=== PATIENT | female | born 1980 | race Caucasian/White ===

== ENCOUNTER 2016-07-05 13:07 | Emergency (ER) | payer MEDICAID ==
[~2016-07-05] VITALS: Wt 81.0 kg
[~2016-07-05 13:07] MED LIST: ACET500C5 PO; AMO500 PO; CEPH-443 PO; IBUP-1542 PO
[2016-07-05] MEDS ORDERED: ACETAMINOPHEN 500 MG TAB PO STA (14:05)
--- NOTE | 2016-07-05 14:06 | ERD ---
ER Documentation Chief Complaint Date/Time DATE: 07/05/16 TIME: 13:55 Chief Complaint FEVER X 2 DAYS HPI 35-year-old female presents to the emergency room for productive cough, shortness of breath, chest pain, back pain, fever for 3 days.Stated that her chest pain and back pain is worse whenever she coughs and on movement. Exposed to son who has a fever. Took ibuprofen 200 mg tablet 1 at around 10 AM today. Denies headache, loss of consciousness, dizziness, blurry vision, changes in vision, photophobia, facial pain, ear pain, throat pain, difficulty swallowing, neck pain, shoulder pain, hemoptysis, abdominal pain, loss of appetite, nausea, vomiting, hematochezia, diarrhea, constipation, urinary symptoms, , the possibility of being , bladder and bowel incontinences, extremity weakness, extremity tenderness, numbness or tingling sensation, difficulty walking, recent travel, recent exposure to illness, recent antibiotic use in the last 3 months, fever, chills. Allergy: No known drug allergies. PMH: "Thyroid." Family medical history: Father has hypertension, grandmother had a heart attack at age of 7272 years old, 2 of his uncles had heart attack after the age of 50. AO LMP: 06/07/2016 Medications: Ibuprofen. Surgery: Denies. Primary Social History: Not working at this time. Denies smoking, use of alcohol, use of illegal drugs. Secondhand smoking exposure to . ROS All systems reviewed and are negative except as per history of present illness. Medications Home Meds Active Scripts Acetaminophen* (Tylophen*) 500 Mg Capsule, 1 CAP PO Q4 Y for PAIN AND OR ELEVATED TEMP, #30 CAP Prov:BUDDY BRAR PA-C 04/23/15 Amoxicillin* (Amoxicillin*) 500 Mg Cap, 500 MG PO BID for 10 Days, CAP Prov:BUDDY BRAR PA-C 04/23/15 Cephalexin* (Keflex*) 500 Mg Capsule, 500 MG PO QID for 7 Days, CAP Prov:SIENNA OLEARY. 10/29/14 Ibuprofen* (Motrin*) 600 Mg Tab, 600 MG PO Q6H Y for PAIN AND OR ELEVATED TEMP, #30 Prov:SIENNA OLEARY. 10/29/14 Allergies Allergies: Coded Allergies: No Known Allergies (Verified Allergy, Mild, 10/31/14) PMhx/Soc History of Surgery: No Anesthesia Reaction: No Hx Neurological Disorder: No Hx Respiratory Disorders: No Hx Cardiac Disorders: No Hx Psychiatric Problems: No Hx Miscellaneous Medical Probl: Yes (hypothyroidism) Hx Alcohol Use: No Hx Substance Use: No Hx Tobacco Use: No Physical Exam Vitals Vital Signs Date Time Temp Pulse Resp B/P Pulse Ox O2 Delivery O2 Flow Rate FiO2 07/05/16 13:12 101.8 122 18 175/98 99 Physical Exam CONSTITUTIONAL: Well-appearing; well-nourished; in no apparent distress. HEAD: Normocephalic; atraumatic. EYES: Conjunctiva clear, sclera non-icteric, EOM intact. PERRL Ears: Hearing intact. EACs clear, TMs non-bulging, non-inflamed, translucent & mobile, ossicles normal appearance, No obstructions, no erythema, no discharges Nose: No obstructions. No polyps. No external lesions. Mucosa non-inflamed. No external lesions, septum and turbinates normal. No rhinorrhea. No discharges. Frontal sinus is non-tender to palpation. Maxillary sinus is non-tender to palpation. MOUTH: Moist mucous membranes, no lesion, no obstructions, no vesicles, no thrush, patent airway Throat: Uvula in midline. Right tonsil is +1 with no erythema, no exudate. Left tonsil is +1 with no erythema, no exudate. Tolerating secretions well. Good gag reflex. Patent airway. Neck: Supple, without lesions, bruits, or adenopathy. No mass. Thyroid non- enlarged and non-tender to palpation. CHEST: Symmetrical chest. Respirations even and not labored. No retractions noted. Mid sternal chest pain on range of motion and during inspiration. CARDIOVASCULAR: Normal S1, S2. RRR. No murmurs, gallops. RESPIRATORY: Normal chest excursion with respiration; breath sounds clear and equal bilaterally; no wheezes, rhonchi, or rales. Breathing even and unlabored. Speaking in clear, full, and complete sentences w/ ease. ABDOMEN: Normal bowel sounds normal. Soft, round, non-distended, non-guarding, no tenderness, no rebound, no organomegaly, no masses, no pulsating abdominal mass. No hernia. No peritoneal signs. : No CVA tenderness. BACK: Symmetrical shoulder. Spine is midline without deformity, tenderness. No evidence of trauma or deformity. Upper back pain during spinal range of motion. PELVIS: Stable pelvis. No evidence of trauma or deformity. MUSCULOSKELETAL: Normal gait and station. No misalignment, asymmetry, crepitation, defects, tenderness, masses, effusions, decreased range of motion, instability, atrophy or abnormal strength or tone in the head, neck, spine, ribs , pelvis or extremities. Has mild supraspinatus tenderness left upper and right upper. No calf tenderness. NEUROVASCULAR: Distal pulses are present. Pedal pulse are present, equal, and normal. Capillary refills are < 2 seconds. NEUROLOGIC: Alert and oriented x4. Speaks full and clear sentences. Cranial Nerves II-XII normal. Sensation to pain, touch, and proprioception normal. Grossly unremarkable. No neurologic deficits. Romberg test is negative. PSYCHOLOGICAL: The patients mood and manner are appropriate. No hallucinations , delusions. Not SI. Not HI. Has the capacity to decide for self SKIN: Normal for age and ethnicity; warm; dry; good turgor; no apparent lesions or exudates. No rashes, hives, discoloration. Intact. Results 24 hrs Current Medications Medications (Trade) Dose Ordered Sig/Shree Route PRN Reason Start Time Stop Time Status Last Admin Dose Admin Acetaminophen (Tylenol Tab) 1,000 mg ONCE STAT PO 07/05/16 14:05 07/05/16 14:08 DC 07/05/16 14:12 Procedures/MDM Examination: Please see physical examination. Disease process, medical treatment was explained to the patient and family member. They verbalized understanding and agreed with the diagnostic tests, medical treatment, and follow-up care. EKG: Sinus tachycardia with ventricular rate of 106 bpm. No evidence of acute myocardial infarction. Radiology: Chest x-ray revealed no active intrathoracic disease. Treatment: Tylenol. Re-evaluation: Denies headache, dizziness, blurry vision, neck pain, chest pain , back pain, abdominal pain. Patient is alert and oriented 4. Tolerating secretions. No difficulty swallowing. Patent airway. Speaks full and clear sentences. No nausea and vomiting. No neurological deficits. Consultation: None. Differential diagnosis: Acute myocardial infarction versus chest wall pain versus pneumonia versus bronchitis versus URI Medical decision makin-year-old female presents to the emergency room for productive cough, shortness of breath, chest pain, back pain, fever for 3 days.Stated that her chest pain and back pain is worse whenever she coughs and on movement. Exposed to son who has a fever. Took ibuprofen 200 mg tablet 1 at around 10 AM today. Patient's complaint, patient's history, patient's presentation, my physical findings, diagnostic test results, my re-evaluation are consistent with my final diagnosis of upper respiratory infection viral in origin. Medications prescribed are the following: [id number] Tylenol and/or Motrin supportive treatment for fever and/or pain. Nafcillin. Promethazine DM. Patient and family member are made aware of the side effects and adverse reactions of the medications prescribed. Instructed on when to seek emergent and medical attention in case allergic/anaphylactic reactions or severe side effects and or adverse reactions to medications. Patient and family member verbalized understanding. Patient instructed Instructed to follow-up with his PCP in 24-48 hours. Patient stated that she will follow-up with her PCP in the next 24-48 hours. Instructed to Call 911 for chest pain, shortness of breath. Advised to come back here in ED as soon as possible for severity of symptoms which includes but not limited to: any new symptoms; shortness of breath/difficulty of breathing; cardiovascular changes; severe gastrointestinal symptoms; signs and symptoms of bleeding and or infection; signs of compartment syndrome/neurovascular changes; neurological changes/deficits. Patient and family member verbalized understanding. Upon discharge, patient is alert and oriented x 4, speaks full and clear sentences, denies pain, has no neurological deficits, has no neurovascular deficits, difficulty of breathing. Breathing even and unlabored. Lung sounds are clear to auscultation. Not in distress. Appears comfortable. Ambulatory with steady gait. Appears satisfied with care provided here in ED. Departure Diagnosis: Primary Impression: Cough Additional Impression: URI (upper respiratory infection) Condition: Good Additional Instructions: Instructed to follow-up with his PCP in 24-48 hours. Patient stated that she will follow-up with her PCP in the next 24-48 hours. Instructed to Call 911 for chest pain, shortness of breath. Advised to come back here in ED as soon as possible for severity of symptoms which includes but not limited to: any new symptoms; shortness of breath/difficulty of breathing; cardiovascular changes; severe gastrointestinal symptoms; signs and symptoms of bleeding and or infection; signs of compartment syndrome/neurovascular changes; neurological changes/deficits. Patient and family member verbalized understanding. JORDYN NOLASCO Jul 05, 2016 14:05
--- NOTE | 2016-07-05 15:54 | RADRPT ---
PROCEDURE: XR Chest. CLINICAL INDICATION: Cough/chest pain TECHNIQUE: Chest PA (chest PA mislabeled right and left). COMPARISON: No comparison available. FINDINGS: The mediastinal structures are unremarkable. The heart is normal in size and configuration. The pu lmonary vascularity is normal. The lung singh are unremarkable. No consolidation is identified. The pleural spaces are unremarkable. The axial skeleton is unremarkable. IMPRESSION: No active intrathoracic disease. RPTAT: HGDB .Arnoldo Fitzgerald MD, MD Date Time Electronically viewed and signed by .Arnoldo Fitzgerald MD, on 07/05/2016 15:54 .B/
[2016-07-05] MEDS ORDERED: BENZ100C70 PO (16:04)
[2016-07-05] MEDS ORDERED: D-ME473S18 PO (16:05)
[2016-07-05 16:21] VITALS: BP 126/85; PULSE 85; RESP 18; TEMP 100
== END 2016-07-05 16:29 | disposition home or self-care (01) ==
LOC: FTE 13:07
DX: R05 Cough (principal); J06.9 Acute upper respiratory infection, unspecified; E03.9 Hypothyroidism, unspecified
CPT/HCPCS: 71010; 93005; Z7502; Z7610

== ENCOUNTER 2016-08-10 14:27 | Emergency (ER) | payer MEDICAID ==
[~2016-08-10] VITALS: Ht 162.6 cm; Wt 75.0 kg
[~2016-08-10 14:27] MED LIST changes: +BENZ100C70 PO; +D-ME473S18 PO; +LEVO25TA59; +PREN1TAB49
[2016-08-10 14:44] VITALS: Ht 162.6 cm; Wt 75.0 kg
[2016-08-10] MEDS ORDERED: LORAZEPAM 1 MG TAB PO ONE (15:00)
[2016-08-10] MEDS ORDERED: IBUP200C PO ×2 (15:16→15:17)
[2016-08-10] MEDS ORDERED: IBUP100T46 PO (15:16)
[2016-08-10] MEDS ORDERED: ACETAMINOPHEN 500 MG TAB PO STA (16:24)
[2016-08-10] MEDS ORDERED: ALPR0.5T PO (16:45)
--- NOTE | 2016-08-10 16:49 | ERD ---
ER Documentation Chief Complaint Date/Time DATE: 08/10/16 TIME: 16:45 Chief Complaint PT BIB for c/o facial numbness, sob and anxiety X 1 hour. HPI This 35-year-old female complains of onset a few hours after giving plasma with symptoms of hyperventilation since of impending doom, tremors, numbness to her entire body, carpal spasms. She had no chest pain no palpitations no syncope no headache no focal neurological complaints When the patient was brought in she was having active carpal spasms with hyperventilation. The patient states she is under a lot of stress currently ROS All systems reviewed and are negative except as per history of present illness. Medications Home Meds Active Scripts Alprazolam* (Xanax*) 0.5 Mg Tab, 0.5 MG PO TID, #14 TAB Prov:TORRES EWING DO 08/10/16 Acetaminophen* (Tylophen*) 500 Mg Capsule, 1 CAP PO Q4 Y for PAIN AND OR ELEVATED TEMP, #30 CAP Prov:BUDDY BRARC 04/23/15 Reported Medications Ibuprofen* (Ibuprofen*) 200 Mg Capsule, 200 MG PO QID Y for PAIN, CAP 08/10/16 Discontinued Reported Medications Ibuprofen* (Ibuprofen*) 200 Mg Capsule, 200 MG PO QID Y for PAIN, CAP 08/10/16 Ibuprofen* (Ibuprofen*) 100 Mg Tab.chew, 200 MG PO Q6 Y for PAIN, TAB.CHEW 08/10/16 Discontinued Scripts Dextromethorphan Hb-Promethazine Hcl (Promethazine DM Syrup) 473 Ml Syrup, 5 ML PO Q6H Y for COUGH, #4 OZ Prov:JOSE ELIASILAROWAN HERRERAAR F 07/05/16 Benzonatate* (Tessalon Perle*) 100 Mg Capsule, 100 MG PO Q8H Y for COUGH for 7 Days, CAP Prov:PASILAROWAN HERRERAAR F 07/05/16 Amoxicillin* (Amoxicillin*) 500 Mg Cap, 500 MG PO BID for 10 Days, CAP Prov:BUDDY BRAR PA-C 04/23/15 Cephalexin* (Keflex*) 500 Mg Capsule, 500 MG PO QID for 7 Days, CAP Prov:SIENNA OLEARY 10/29/14 Ibuprofen* (Motrin*) 600 Mg Tab, 600 MG PO Q6H Y for PAIN AND OR ELEVATED TEMP, #30 Prov:SIENNA OLEARY 10/29/14 Allergies Allergies: Coded Allergies: No Known Allergies (Verified Allergy, Mild, 08/10/16) PMhx/Soc History of Surgery: No Anesthesia Reaction: No Hx Neurological Disorder: No Hx Respiratory Disorders: No Hx Cardiac Disorders: No Hx Psychiatric Problems: No Hx Miscellaneous Medical Probl: Yes (hypothyroidism) Hx Alcohol Use: No Hx Substance Use: No Hx Tobacco Use: No Smoking Status: Never smoker FmHx Family History: No coronary disease Physical Exam Vitals Vital Signs Date Time Temp Pulse Resp B/P Pulse Ox O2 Delivery O2 Flow Rate FiO2 08/10/16 14:44 97.9 98 20 122/78 100 Physical Exam Const: Well-developed, well-nourished Head: Atraumatic, normocephalic Eyes: Normal Conjunctiva, PERRLA, EOMI, normal sclera, no nystagmus ENT: Normal External Ears, Nose and Mouth, moist mucus membranes. Neck: Full range of motion. No meningismus, no lymphadenopathy. Resp: Clear to auscultation bilaterally, no wheezing, rhonchi, rales Cardio: Tachycardia, no murmurs, S1 S2 present] Abd: Soft, non tender x 4, non distended. Normal bowel sounds, no guarding or rebound, no pulsitile abdominal masses or bruits Skin: No petechiae or rashes, no ecchymosis , no maculopapular rash Back: No midline or flank tenderness Ext: No cyanosis, or edema, FROM x 4, normal inspection, neurovascularly intact x 4 Neur: Awake and alert, STR 5/5 x 4, sensation intact x 4, no focal findings, cerebellum intact Psych: Active panic attack, anxiety with carpal spasm] Results 24 hrs Current Medications Medications (Trade) Dose Ordered Sig/Shree Route PRN Reason Start Time Stop Time Status Last Admin Dose Admin Lorazepam (Ativan) 1 mg ONCE ONCE PO 08/10/16 15:00 08/10/16 15:01 DC 08/10/16 14:56 Acetaminophen (Tylenol Tab) 1,000 mg ONCE STAT PO 08/10/16 16:24 08/10/16 16:25 DC 08/10/16 16:29 Procedures/MDM EKG: Rate/Rhythm: Normal Sinus Rhythm,NL intervals QRS, ST, QT: NORMAL CO, QRS, QT] Impression: NORMAL EKG Patient is now calm. The patient had an active anxiety attack. The patient says she has a lot of stressors in life currently. The patient has no focal neurological complaints no exam consistent with stroke or other pathology. Departure Diagnosis: Primary Impression: Anxiety attack Condition: Stable Patient Instructions: Anxiety Reaction Referrals: NO PRIMARY,CARE PHYSICIAN (PCP) TRORES EWING DO Aug 10, 2016 16:49
[2016-08-10 16:54] VITALS: BP 118/76; PULSE 92; RESP 18; TEMP 98.1
== END 2016-08-10 16:56 | disposition home or self-care (01) ==
LOC: E/R 14:27
DX: F41.1 Generalized anxiety disorder (principal); E03.9 Hypothyroidism, unspecified; R40.2142 Coma scale, eyes open, spontaneous, at arrival to emergency department; R40.2252 Coma scale, best verbal response, oriented, at arrival to emergency department; R40.2362 Coma scale, best motor response, obeys commands, at arrival to emergency department; R06.02 Shortness of breath
CPT/HCPCS: 93005; Z7502; Z7610

== ENCOUNTER 2016-08-26 08:22 | Emergency (ER) | payer MEDICAID ==
[~2016-08-26] VITALS: Ht 157.5 cm; Wt 78.9 kg
[~2016-08-26 08:22] MED LIST changes: +ALPR0.5T PO; -AMO500 PO; -BENZ100C70 PO; -CEPH-443 PO; -D-ME473S18 PO; -IBUP-1542 PO; +IBUP200C PO; -LEVO25TA59; -PREN1TAB49
[2016-08-26 08:26] VITALS: Ht 157.5 cm; Wt 78.9 kg
[2016-08-26] MEDS ORDERED: KETOROLAC 60 MG INJ IM STA (08:55)
--- NOTE | 2016-08-26 10:41 | RADRPT ---
PROCEDURE: XR Shoulder. CLINICAL INDICATION: Injury TECHNIQUE: Three views of the right shoulder are available for review. COMPARISON: None available FINDINGS: The humeral head is located. The AC joint is maintained. There is no acute osseous or articular abn ormality. No evidence for fracture. The visualized portions of the right lung are clear . IMPRESSION: 1. No acute osseous abnormality. RPTAT: PP .Soto Martino MD, MD Date Time Electronically viewed and signed by .Soto Martino MD, on 08/26/2016 10:41 .d/
[2016-08-26] MEDS ORDERED: IBUP-1542 PO (11:15)
[2016-08-26] MEDS ORDERED: CYCL-319 PO (11:15)
--- NOTE | 2016-08-26 11:21 | ERD ---
ER Documentation Chief Complaint Date/Time DATE: 08/26/16 TIME: 11:18 Chief Complaint right shoulder pain after heavy lifting HPI 35-year-old female patient with no significant past medical history presents to the ED complaining of right shoulder pain after pulling a heavy shelf at home yesterday. States that she is unsure how heavy was the dresser. Patient is unable to describe her pain. Rates the pain a 9 out of 10. States that she has been taking ibuprofen with slight relief of her symptoms. Denies any chest pain, shortness of breath, fever, chills, neck pain, neck stiffness, loss of sensation, loss of range of motion. Denies any other injuries. ROS All systems reviewed and are negative except as per history of present illness. Medications Home Meds Active Scripts Cyclobenzaprine Hcl* (Cyclobenzaprine Hcl*) 10 Mg Tablet, 10 MG PO TID, #15 TAB Prov:NATHANIEL FIORE PA-C 08/26/16 Ibuprofen* (Motrin*) 600 Mg Tab, 600 MG PO Q6, #30 TAB Prov:NATHANIEL FIORE PA-C 08/26/16 Alprazolam* (Xanax*) 0.5 Mg Tab, 0.5 MG PO TID, #14 TAB Prov:TORRES EWING DO 08/10/16 Acetaminophen* (Tylophen*) 500 Mg Capsule, 1 CAP PO Q4 Y for PAIN AND OR ELEVATED TEMP, #30 CAP Prov:BUDDY BRAR PA-C 04/23/15 Reported Medications Ibuprofen* (Ibuprofen*) 200 Mg Capsule, 200 MG PO QID Y for PAIN, CAP 08/10/16 Allergies Allergies: Coded Allergies: No Known Allergies (Verified Allergy, Mild, 08/10/16) PMhx/Soc Medical and Surgical Hx: pt denies Surgical Hx History of Surgery: No Anesthesia Reaction: No Hx Neurological Disorder: No Hx Respiratory Disorders: No Hx Cardiac Disorders: No Hx Psychiatric Problems: No Hx Miscellaneous Medical Probl: Yes (hypothyroidism) Hx Alcohol Use: No Hx Substance Use: No Hx Tobacco Use: No Smoking Status: Never smoker Physical Exam Vitals Vital Signs Date Time Temp Pulse Resp B/P Pulse Ox O2 Delivery O2 Flow Rate FiO2 08/26/16 11:37 76 18 132/88 99 Room Air 08/26/16 08:26 98.1 76 18 138/90 99 Physical Exam Const: Lnq-yfs-yqehfluia, well-nourished. In no acute distress. Head: Atraumatic, normocephalic Eyes: Normal Conjunctiva without injection ENT: Normal external ear, nose and mouth. Neck: Full range of motion. No meningismus. Resp: Clear to auscultation bilaterally. No wheezing, rhonchi, rales, or crackles. No accessory muscle use. No retractions. Cardio: Regular rate and rhythm, no murmurs Skin: No petechiae or rashes Back: No midline tenderness. No CVA tenderness. Ext: No cyanosis, or edema. Cap refill less than 2 seconds. Distal pulses intact bilaterally. Tenderness to palpation of right anterior humerus. Patient still has the ability to perform flexion, extension and internal and external rotation with right shoulder. All other extremities - full range of motion. Neur: Awake and alert. Normal gait and coordination. Muscle strength 5/5. Sensation intact bilaterally. Psych: Normal Mood and Affect Results 24 hrs Current Medications Medications (Trade) Dose Ordered Sig/Shree Route PRN Reason Start Time Stop Time Status Last Admin Dose Admin Ketorolac Tromethamine (Toradol) 60 mg ONCE STAT IM 08/26/16 08:55 08/26/16 08:58 DC 08/26/16 09:15 Procedures/MDM This is a 35-year-old female patient with no significant past medical history presents the ED complaining of a shoulder injury. Patient is afebrile and nontoxic-appearing. Patient has normal vital signs. A right shoulder x-ray was ordered to further evaluate patient. Patient given Toradol with improvement of her pain. PROCEDURE: XR Shoulder. CLINICAL INDICATION: Injury TECHNIQUE: Three views of the right shoulder are available for review. COMPARISON: None available FINDINGS: The humeral head is located. The AC joint is maintained. There is no acute osseous or articular abnormality. No evidence for fracture. The visualized portions of the right lung are clear . IMPRESSION: 1. No acute osseous abnormality. Patient is placed in a sling Splint Assessment: Neurovascularly intact pre and post sling placement with good fit. Patient likely sustained a shoulder sprain. Patient's extremity symptoms have stabilized while they have been evaluated in the department and are appropriate for outpatient follow up. No evidence of fractures, dislocations, compartment syndrome, neurologic injury, vascular injury, open joint, open fracture, tendon laceration, septic arthritis, osteomyelitis, DVT, foreign body, or other emergent conditions. Discharge medications: Flexeril, Ibuprofen Follow up with primary care physician in 1-2 days. Instructed patient to return to the ED sooner for any worsening symptoms. Patient's questions were answered. Patient understood and agreed with discharge plan. Patient discharged stable. Departure Diagnosis: Primary Impression: Shoulder pain Laterality: right Chronicity: unspecified Qualified Code: M25.511 - Right shoulder pain, unspecified chronicity Condition: Stable Patient Instructions: Shoulder Sprain , Shoulder Pain (Uncertain Cause) Referrals[facility] Usted se dias hecho un examen mdico de control que le indica que no est en sandra condicin que requiera tratamiento urgente en el Departamento de Emergencia. Un estudio ms profundo y el tratamiento de urban condicin pueden esperar sin ningn riesgo hasta que usted sea atendida/o en el consultorio de urban mdico o sandra cl adri. Es responsabilidad suya arreglar sandra desean para el seguimiento del tay. MANEJO DE CONDICIONES NO URGENTES EN EL FUTURO 1) Si usted tiene un mdico de atencin primaria: Usted debera llamar a urban mdico de atencin primaria antes de venir al departamento de emergencia. Despus de las horas de consultorio, urban doctor o urban asociado/a est disponible por telfono. El mdico o enfermero de samir en el servicio telefnico puede asesorarle por scott medio para atender el problema, o tay contrario se puede programar sandra desean. 2) Si usted no tiene un mdico de atencin primaria: Llame al mdico o clnica de referencia que aparece abajo val las horas de consultorio para hacer sandra desean para que le vean. CLINICAS: [facility] [phone] [address] [facility] [phone] [place] [facility] [phone] [place] [id number] [phone] [place] [id number] [phone] [facility]. [phone] . [facility] () Usted se dias hecho un examen mdico de control que le indica que no est en sandra condicin que requiera tratamiento urgente en el Departamento de Emergencia. Un estudio ms profundo y el tratamiento de urban condicin pueden esperar sin ningn riesgo hasta que usted sea atendida/o en el consultorio de urban mdico o sandra cl adri. Es responsabilidad suya arreglar sandra desean para el seguimiento del tay. MANEJO DE CONDICIONES NO URGENTES EN EL FUTURO 1) Si usted tiene un mdico de atencin primaria: Usted debera llamar a urban mdico de atencin primaria antes de venir al departamento de emergencia. Despus de las horas de consultorio, urban doctor o urban asociado/a est disponible por telfono. El mdico o enfermero de samir en el servicio telefnico puede asesorarle por scott medio para atender el problema, o tay contrario se puede programar sandra desean. 2) Si usted no tiene un mdico de atencin primaria: Llame al mdico o condado institucions de referencia que aparece abajo val las horas de consultorio para hacer sandra desean para que le vean. SI USTED NO PUEDE PAGAR PARA LY UN MEDICO puede ir a: [facility] [address] [place] [address] [facility] [address] [place] [address] [facility] [address] [place] [address] [facility] [address] [place] [address] [facility] Urgent Care 7 a.m.- 11 p.m. Every Day of the Week NO APPOINTMENT OR AUTHORIZATION NEEDED [facility] Hours: Mon-Fri 9:00 AM - 5:00 PM Additional Instructions: Llame al doctor MAANA y anneliees sandra DESEAN PARA DENTRO DE 1-2 ELDER.Dgale a la secretaria que nosotros le instruimos hacer esta desean.Avise o llame si urban condicin se empeora antes de la desean. Regresa aqui si peor o no mejor. NATHANIEL FIORE PA-C August 26, 2016 11:21 NATHANIEL FIORE PA-C August 26, 2016 11:21
[2016-08-26 11:37] VITALS: BP 132/88; PULSE 76; RESP 18
== END 2016-08-26 11:38 | disposition home or self-care (01) ==
LOC: FTE 08:22
DX: M25.511 Pain in right shoulder (principal); E03.9 Hypothyroidism, unspecified
CPT/HCPCS: 73030; J1885

== ENCOUNTER 2016-09-14 20:53 | Emergency (ER) | payer MEDICAID ==
[~2016-09-14] VITALS: Ht 154.9 cm; Wt 77.8 kg
[~2016-09-14 20:53] MED LIST changes: +CYCL-319 PO; +IBUP-1542 PO
[2016-09-14 20:56] VITALS: Ht 154.9 cm; Wt 77.8 kg
[2016-09-14] MEDS ORDERED: ALPR0.5T PO (23:01)
--- NOTE | 2016-09-15 00:22 | ERD ---
ER Documentation Chief Complaint Date/Time DATE: 09/15/16 TIME: 00:05 Chief Complaint anxiety attack cant move her fingers HPI Patient is a 35-year-old female with past medical history of panic attacks presents to the emergency department with her for concerns of "anxiety attack". Patient states earlier today she became short of breath and started having difficulty breathing. Patient reports hyperventilating prior to arrival. She states that her breathing has improved significantly. Patient also reports numbness and tingling to her fingers earlier today.. The symptoms have now completely resolved. Patient does state that today was a stressful day for her as she found out that she lost a friend. Patient also reports numerous stressors at home including problems with her son, inability to make bills, losing her apartment. Patient denies any homicidal ideations or suicidal ideations at this time. Patient denies any current chest pain, nausea, vomiting, abdominal pain, left upper extremity pain, diaphoresis or loss consciousness. ROS All systems reviewed and are negative except as per history of present illness. Medications Home Meds Active Scripts Alprazolam* (Xanax*) 0.5 Mg Tab, 0.5 MG PO Q8H Y for ANXIETY, #9 TAB Prov:JOCELYN DALEY PA-C 09/14/16 Cyclobenzaprine Hcl* (Cyclobenzaprine Hcl*) 10 Mg Tablet, 10 MG PO TID, #15 TAB Prov:NATHANIEL FIORE PA-C 08/26/16 Ibuprofen* (Motrin*) 600 Mg Tab, 600 MG PO Q6, #30 TAB Prov:NATHANIEL FIORE PA-C 08/26/16 Alprazolam* (Xanax*) 0.5 Mg Tab, 0.5 MG PO TID, #14 TAB Prov:TORRES EWING DO 08/10/16 Acetaminophen* (Tylophen*) 500 Mg Capsule, 1 CAP PO Q4 Y for PAIN AND OR ELEVATED TEMP, #30 CAP Prov:BUDDY BRRA PA-C 04/23/15 Reported Medications Ibuprofen* (Ibuprofen*) 200 Mg Capsule, 200 MG PO QID Y for PAIN, CAP 08/10/16 Allergies Allergies: Coded Allergies: No Known Allergies (Verified Allergy, Mild, 08/10/16) PMhx/Soc Medical and Surgical Hx: pt denies Surgical Hx History of Surgery: No Anesthesia Reaction: No Hx Neurological Disorder: No Hx Respiratory Disorders: No Hx Cardiac Disorders: No Hx Psychiatric Problems: No Hx Miscellaneous Medical Probl: Yes (hypothyroidism) Hx Alcohol Use: No Hx Substance Use: No Hx Tobacco Use: No Smoking Status: Never smoker FmHx Family History: No diabetes Physical Exam Vitals Vital Signs Date Time Temp Pulse Resp B/P Pulse Ox O2 Delivery O2 Flow Rate FiO2 09/14/16 20:56 98.4 106 20 137/85 98 Physical Exam GENERAL: Well-developed, well-nourished female. Appears in no acute distress. Not hyperventilating. Speaking in full sentences. HEAD: Normocephalic, atraumatic. EYES: Pupils are equally reactive bilaterally. EOMs grossly intact. No conjunctival erythema. ENT: Moist mucous membranes. No uvula deviation. No kissing tonsils. NECK: Supple. No meningismus. Normal range of motion of the neck. LUNG: Clear to auscultation bilaterally. No rhonchi, wheezing, rales or coarse breath sounds. HEART: Regular rate and rhythm. No murmurs, rubs or gallops. BACK: No midline tenderness. EXTREMITIES: Equal pulses bilaterally. No peripheral clubbing, cyanosis or edema. No unilateral leg swelling. NEUROLOGIC: Alert and oriented x3, cooperative. Normal speech. Motor exam: 5/5 strength in upper and lower extremities. Sensory exam: Sensation intact to light touch on all four extremities. Cerebellar function exam: No dysmetria on [id number] test. Steady gait. No pronator drift. SKIN: Normal color. Warm and dry. No rashes or lesions. BILATERAL HANDS: Full normal range of motion of all digits. No contractions noted. Non-tender to palpation. Sensation intact to light touch. Neurovascularly intact. (Able to give thumbs up, make an ok sign, cross digits 2 and 3, thumb to pinky opposition. 2+ RP.) PSYCH: Calm, Flat affect. Procedures/MDM ED COURSE: The patient was stable throughout ED course. I kept the patient and/or family informed of laboratory and diagnostic imaging results throughout the ED course. EKG: Read by Dr. Olsen, attending physician. EKG shows normal sinus rhythm at a rate of 88 bpm. No arrhythmias, acute ST elevations or T wave changes were noted. MEDICAL DECISION MAKING: This is a 35-year-old female who presents with concerns of an anxiety attack after hearing about her friend who earlier today. She does report numerous stressors in her life. Patient denies any homicidal or suicidal ideations. Patient did report hyperventilation and numbness and tingling in her hands prior to arriving to the ED. Upon my examination, the patient's symptoms had resolved. Vital signs were reviewed. Patient was afebrile. Patient was not hypoxic. Cardiac exam was normal. Lung exam was normal EKG was within normal limits. Low suspicion for acute coronary syndrome, arrhythmia, pericarditis, pneumothorax, neurovascular injury. At this time, patient's presentation is most consistent with anxiety attack. I had a long discussion with the patient as well as the patient's about the importance of following up with psychologist or/and psychiatrist for further management of her ongoing anxiety. Patient advised to contact her insurance company for mental health help options. Patient was provided with referral information. Patient does report good support system and was encouraged to speak to family members and friends for coping with current stressors. PRESCRIPTIONS: Xanax DISCHARGE: At this time, patient is stable for discharge and outpatient management. I have instructed the patient to follow-up with his/her primary care physician in 1-2 days. Patient was advised to return to the ED for any changes in affect or mood including homicidal ideation or suicidal ideations. I have instructed the patient to promptly return to the ER at any time for any new or worsening symptoms including increased increased pain, fever, nausea, vomiting, numbness, weakness, diaphoresis or LOC. The patient and/or family expressed understanding of and agreement with this plan. All questions were answered. Home care instructions were provided. Departure Diagnosis: Primary Impression: Anxiety attack Condition: Stable Patient Instructions: Panic Attack Referrals: NOHEMI VASQUEZ HASSAN S. MD KATZ, MARINA MD MOSTAFAVI, ADEL SAGGU, HARKIRAT S. MD SCHNEIDER, ALAN L Additional Instructions: Call your primary care doctor TOMORROW for an appointment during the next 1-2 days.See the doctor sooner or return here if your condition worsens before your appointment time. Patient advised to contact her insurance for mental health options. Patient was advised to see a psychologist and/or psychiatric concerns of anxiety. JOCELYN DALEY PA-C September 15, 2016 00:16 JOCELYN DALEY PA-C September 15, 2016 00:16
== END 2016-09-14 23:37 | disposition home or self-care (01) ==
LOC: FTE 20:53
DX: F41.9 Anxiety disorder, unspecified (principal); E03.9 Hypothyroidism, unspecified; R06.02 Shortness of breath
CPT/HCPCS: 93005

== ENCOUNTER 2017-03-28 15:15 | Emergency (ER) | payer MEDICAID ==
[~2017-03-28] VITALS: Ht 157.5 cm; Wt 77.9 kg
[2017-03-28 15:24] VITALS: Ht 157.5 cm; Wt 77.9 kg
[2017-03-28] MEDS ORDERED: IBUP-1542 PO (17:14)
[2017-03-28] MEDS ORDERED: PENI500T PO (17:14)
--- NOTE | 2017-03-28 17:20 | ERD ---
ER Documentation Chief Complaint Chief Complaint Complains of sore throat x 3 days HPI This is a 36-year-old female presents to the ER with a sore throat for the last 5 days. Patient states that it is painful for her to swallow in the sore throat has gotten significantly worse. Patient has had a fever every day, she has been taking Tylenol for the fevers. Pain radiates into her right ear. She denies any dental pain. Denies a cough. ROS 12 point review of systems was done, all negative except per HPI. Medications Home Meds Active Scripts Ibuprofen* (Motrin*) 600 Mg Tab, 600 MG PO Q6, #30 TAB Prov:DAMIEN QUICK 03/28/17 Penicillin V Potassium* (Penicillin V K*) 500 Mg Tab, 500 MG PO BID for 10 Days , TAB Prov:DAMIEN QUICK 03/28/17 Alprazolam* (Xanax*) 0.5 Mg Tab, 0.5 MG PO Q8H Y for ANXIETY, #9 TAB Prov:JOCELYN DALEY PA-C 09/14/16 Cyclobenzaprine Hcl* (Cyclobenzaprine Hcl*) 10 Mg Tablet, 10 MG PO TID, #15 TAB Prov:NATHANIEL FIORE PA-C 08/26/16 Ibuprofen* (Motrin*) 600 Mg Tab, 600 MG PO Q6, #30 TAB Prov:NATHANIEL FIORE PA-C 08/26/16 Alprazolam* (Xanax*) 0.5 Mg Tab, 0.5 MG PO TID, #14 TAB Prov:TORRES EWING DO 08/10/16 Acetaminophen* (Tylophen*) 500 Mg Capsule, 1 CAP PO Q4 Y for PAIN AND OR ELEVATED TEMP, #30 CAP Prov:BUDDY BRAR PA-C 04/23/15 Reported Medications Ibuprofen* (Ibuprofen*) 200 Mg Capsule, 200 MG PO QID Y for PAIN, CAP 08/10/16 Allergies Allergies: Coded Allergies: No Known Allergies (Verified Allergy, Mild, 08/10/16) PMhx/Soc History of Surgery: No Anesthesia Reaction: No Hx Neurological Disorder: No Hx Respiratory Disorders: No Hx Cardiac Disorders: No Hx Psychiatric Problems: No Hx Miscellaneous Medical Probl: Yes (hypothyroidism) Hx Alcohol Use: No Hx Substance Use: No Hx Tobacco Use: No Smoking Status: Never smoker Physical Exam Vitals Vital Signs Date Time Temp Pulse Resp B/P Pulse Ox O2 Delivery O2 Flow Rate FiO2 03/28/17 15:24 99.3 84 20 132/82 98 Physical Exam \GENERAL: The patient is well-developed, well-nourished, in no acute distress. NECK: Cervical spine is non tender with no step off. Supple, no nuchal rigidity HEENT: Atraumatic. Pupils equal, round and reactive to light. Extraocular muscles are grossly intact. Conjunctivae pink, no discharge. Bilateral tympanic membranes are clear with no evidence of erythema, effusion or dulling of the light reflex.bilateral tonsillar erythema with exudates bilaterally, no uvular deviation, no kissing tonsils. RESPIRATORY: Clear to auscultation bilaterally. There are no rales, wheezes or rhonchi. HEART: Regular rate and rhythm. No murmurs, clicks, rubs or gallops. EXTREMITIES: No clubbing or cyanosis. Full range of motion. Grossly neurovascularly intact. NEUROLOGIC: Alert and oriented. Cranial nerves II through XII are intact. SKIN: There is no rash. The skin is warm and dry. Procedures/MDM This is a 36-year-old female that presents to the ER that presents to the ER with sore throat. Patient does appear to have throat. Suspicion for retropharyngeal abscess or peritonsillar abscess is low. Patient does not have any stridor, respiratory distress or dysphasia. She is afebrile and well- appearing in the ER. She will be sent home with penicillin and with ibuprofen. Patient is to follow-up with her primary care doctor within 1-2 days or return to ER sooner if symptoms worsen. My medical decision making shared with the patient she understands and agrees with plan. Departure Diagnosis: Primary Impression: Strep throat Condition: Stable Patient Instructions: Strep Throat Additional Instructions: Call your primary care doctor TOMORROW for an appointment during the next 1-2 days.See the doctor sooner or return here if your condition worsens before your appointment time. DAMIEN QUICK Mar 28, 2017 17:20
== END 2017-03-28 17:56 | disposition home or self-care (01) ==
LOC: FTE 15:15
DX: J02.0 Streptococcal pharyngitis (principal); E03.9 Hypothyroidism, unspecified
CPT/HCPCS: 99283

== ENCOUNTER 2018-01-30 11:56 | Emergency (ER) | END 2018-01-30 13:12 | disposition home or self-care (01) ==